=== PATIENT | male | born 1945 | race Caucasian/White ===

== ENCOUNTER 2021-09-27 02:58 | Inpatient (IN) | payer MEDICARE, BC ==
[~2021-09-27] VITALS: Ht 172.7 cm; Wt 84.7 kg
[2021-09-27] VITALS (7 sets, daily range): BP systolic 000–158; BP diastolic 00–67; PULSE 82–91; TEMP 97.8–98.6
[2021-09-27 03:29] LABS: BASO # 0.1 K/mm3 (0.0-0.2); BASO % 0.5 % (0.0-2.0); EOS # 0.2 K/mm3 (0.0-0.7); EOS % 1.9 % (0.0-4.0); GRAN # 5.2 K/mm3 (1.4-6.5); GRAN % 53.3 % (42.2-75.2); HEMATOCRIT 43.6 % (42.0-52.0); HEMOGLOBIN 14.2 g/dl (13.5-18.0); LYMPH # 3.1 K/mm3 (1.2-3.4); LYMPH % 31.9 % (20.0-51.0); MEAN CELL VOLUME 90 fl (80.0-100.0); MEAN CORPUSCULAR HEMOGLOBIN 29 pg (27-31); MEAN CORPUSCULAR HGB CONC 33 g/dl (33.0-37.0); MONO % 10.5 % (1.7-9.3); PLATELET COUNT 258 K/mm3 (130-400); RED BLOOD COUNT 4.83 M/mm3 (4.20-5.60); REDCELL DISTRIBUTION WIDTH-CV 13.8 % (11.5-14.5)
[2021-09-27 03:49] LABS: ALBUMIN 3.4 gm/dL (3.4-4.8); BILIRUBIN,TOTAL 0.3 mg/dL (0.2-1.2); CALCIUM 9.4 mg/dL (8.4-10.2); CREATININE, serum 1.42 mg/dL (0.72-1.25); POTASSIUM 4.7 mmol/L (3.5-4.5); TOTAL PROTEIN 6.8 gm/dL (6.2-8.1)
[2021-09-27] MEDS ORDERED: LIALDA 1.2 GM1.2 GM (05:04)
[2021-09-27 05:05] LABS: PROTHROMBIN TIME 11.8 SECONDS (9.7-12.8)
[2021-09-27] MEDS ORDERED: KAPSPARGO SPRIN25 MG PO (05:05)
[2021-09-27] MEDS ORDERED: RAPAFLO4 MG PO (05:05)
[2021-09-27] MEDS ORDERED: ASPIRIN 81M81 MG/TA2 PO (05:06)
[2021-09-27] MEDS ORDERED: NASACORT OTC NS (05:06)
[2021-09-27] MEDS ORDERED: ARTIFICIAL TEAR15 M7 OP (05:06)
[2021-09-27] MEDS ORDERED: PROSCAR 5MG5 MG PO (05:06)
[2021-09-27] MEDS ORDERED: VITAMIN C500 MG PO (05:07)
[2021-09-27] MEDS ORDERED: PROAIR HFA0.09 MG/AC IH (05:07)
[2021-09-27] MEDS ORDERED: COMPLETE MULTI1 TAB PO (05:07)
[2021-09-27] MEDS ORDERED: MASON NATURAL2000 IU PO (05:08)
[2021-09-27] MEDS ORDERED: CLARITIN 1010 MG/TAB PO (05:08)
--- NOTE | 2021-09-27 06:16 | NUR ---
patient up to room 323 at 0610. alert and oriented. ambulated to bed with standby assist. vitals taken by tube winder. iv zosyn hung and infusing. denies pain.
[2021-09-27] MEDS ORDERED: ATACAND32 MG PO (07:40)
--- NOTE | 2021-09-27 09:30 | NUR ---
PT RESTING IN BED. DR. JOSEPH HAS BEEN HERE TO SEE PT. IVF ET SANDOSTATIN INFUSING CONCURRENTLY INTO LEFT UPPER ARM IV. PT'S DIET CHANGED TO CLEAR LIQUIDS, STATES THAT HE WOULD JUST LIKE SOME WATER. PT HAS BEEN TO THE BR X1 TO VOID ET HAD A LARGE LIQUID STOOL. STOOL IS DARK RED WITH SEVERAL CLOTS SEEN.
[2021-09-27 09:38] LABS: HEMATOCRIT 35.4 % (42.0-52.0); HEMOGLOBIN 11.5 g/dl (13.5-18.0)
--- NOTE | 2021-09-27 11:12 | NUR ---
PT HAS BEEN ASSISTED TO BR ET BACK TO BED, HAS HAD 200 ML LIQUID DARK RED STOOL WITH NUMEROUS CLOTS. SPINDLE CARVER NOTIFIED THIS NURSE THAT PT'S HR INCREASED TO 140s FOR A SHORT WHILE WHEN HE WAS IN BR, HAS SINCE RETURNED TO 60-70s. PT IS PALE ET STATES THAT HE DID FEEL A BIT WOOZY RETURNING FROM THE BR THIS TIME. PT EDUCATED ON FALL PRECAUTIONS, DEMONSTRATES UNDERSTANDING. FAMILY IS @ BEDSIDE. CALL LIGHT WITHIN REACH.
--- NOTE | 2021-09-27 12:32 | NUR ---
line out worker met with patient to complete intake and discuss discharge plan. Patient lives at home with his saad ([phone]) in [place]. Patient's son Willam ([phone]) is present at bedside. Patient is independent with his ADL's and does not utilize any DME to assist with mobility. Patient has no home oxygen needs. PCP is Dr. Hameed and he follows for GI. He utilizes [facility] pharmacy in [place] for prescriptions with no cost difficulty. Patient reports that he does have a DPOA-HC established but one is no found in his EMR. Patient is planning on returning home once medically ready. SW collaborated with patient's RN for PT/OT orders. Discharge plan: Home
--- NOTE | 2021-09-27 13:12 | NUR ---
Initial visit; Patient and his Carol thanked Line Erector Apprentice for looking in on Esequiel and offering encouragement, comfort, understanding and prayer. Patient demonstrates some fear and is waiting and hopefully his issues may take care of themselves, although he and his Physician are counting on prayer and hopefully they won't have to take other measures to stop it. Line Erector Apprentice will keep him in her prayers and will look in on Esequiel tomorrow or earlier if the need arises.
[2021-09-27 15:06] LABS: HEMATOCRIT 31.5 % (42.0-52.0)
--- NOTE | 2021-09-27 19:06 | NUR ---
REPORT HAS BEEN GIVEN TO NIGHT FRED AGUIAR. PT HAS HAD NUMEROUS LIQUID CLOTTY DARK RED STOOLS TODAY. PT HAS ALSO VOIDED, DENIES ANY PAIN OR NAUSEA. PT HAS TOLERATED CLEAR LIQUID DIET WELL. IVF INFUSING INTO RIGHT FOREARM IV. PERIPHERAL IV IN PT'S LEFT UPPER ARM WAS DCED R/T LEAKING ET PAIN @ SITE. SPOUSE HAS BEEN @ BEDSIDE. PT USES SBA WITH AMBULATION TO THE BR, STATES THAT HE DOES FEEL DIZZY WHEN DOING SO. RESPIRATIONS UNLABORED ON ROOM AIR. CALL LIGHT WITHIN REACH.
[2021-09-27 20:44] LABS: HEMATOCRIT 28.8 % (42.0-52.0); HEMOGLOBIN 9.1 g/dl (13.5-18.0)
[2021-09-28 03:28] VITALS: BP 134/55; PULSE 87; TEMP 97.9
[2021-09-28 05:54] LABS: BASO % 0.4 % (0.0-2.0); EOS # 0.2 K/mm3 (0.0-0.7); EOS % 1.9 % (0.0-4.0); GRAN # 4.8 K/mm3 (1.4-6.5); GRAN % 60.8 % (42.2-75.2); LYMPH # 1.8 K/mm3 (1.2-3.4); MEAN CELL VOLUME 91 fl (80.0-100.0); MEAN CORPUSCULAR HGB CONC 32 g/dl (33.0-37.0); MEAN PLATELET VOLUME 11.2 fl (7.4-10.4); MONO % 12.5 % (1.7-9.3); PLATELET COUNT 179 K/mm3 (130-400); RED BLOOD COUNT 2.88 M/mm3 (4.20-5.60); REDCELL DISTRIBUTION WIDTH-CV 14.2 % (11.5-14.5)
[2021-09-28 05:57] LABS: HEMATOCRIT 26.2 % (42.0-52.0); HEMOGLOBIN 8.4 g/dl (13.5-18.0); MEAN CORPUSCULAR HEMOGLOBIN 29 pg (27-31)
[2021-09-28 06:10] LABS: CALCIUM 8.1 mg/dL (8.4-10.2); CREATININE, serum 1.23 mg/dL (0.72-1.25); MAGNESIUM 1.8 mg/dL (1.6-2.6); POTASSIUM 4.6 mmol/L (3.5-4.5)
--- NOTE | 2021-09-28 06:25 | NUR ---
no bloody stools this shift, voiding clear, yellow urine. IVF infusing per PIV @75cc/hr, octreotide infusing @50cc/hr. tolerating clear liquids w/o N/V. no dizziness tonight when up out of bed.
[2021-09-28 07:30] VITALS: BP 134/59; PULSE 81; TEMP 98
[2021-09-28 12:12] VITALS: BP 131/61; PULSE 82; TEMP 97.8
[2021-09-28 16:02] VITALS: BP 133/64; PULSE 78; TEMP 98.5
[2021-09-28 19:25] VITALS: BP 135/54; PULSE 73; TEMP 98.5
[2021-09-28 19:31] LABS: HEMATOCRIT 24.9 % (42.0-52.0); HEMOGLOBIN 7.8 g/dl (13.5-18.0)
--- NOTE | 2021-09-28 22:35 | NUR ---
Patient denies pain and discomfort. HMG back at 7.8. Updated patient and family. Denies having any bowel movements today. Aware that staff wants to visualize stool if he does have another bowel movement. Voices no questions, needs, or concerns at this time. Continues on IV fluids per orders. In bed with call light within reach.
[2021-09-28 23:39] VITALS: BP 144/56; PULSE 87; TEMP 99.2
[2021-09-29] MEDS ORDERED: FERRO-TIME325 MG PO (00:59)
[2021-09-29] MEDS ORDERED: MIRALAX PA17 GM/Dose PO (01:01)
[2021-09-29 04:16] VITALS: BP 140/56; PULSE 92; TEMP 97.8
--- NOTE | 2021-09-29 05:15 | NUR ---
Patient has denied pain and discomfort this shift. Continues on IV fluids per orders. No bowel movements this shift. Voices no questions, needs, or concerns at this time. In bed with call light within reach.
[2021-09-29 07:25] VITALS: BP 138/66; PULSE 78; TEMP 97.8
[2021-09-29 07:31] VITALS: BP 120/58; PULSE 51; TEMP 97.6
[2021-09-29 10:49] LABS: HEMATOCRIT 26.8 % (42.0-52.0); HEMOGLOBIN 8.6 g/dl (13.5-18.0)
[2021-09-29 11:01] LABS: CALCIUM 8.5 mg/dL (8.4-10.2); CREATININE, serum 1.3 mg/dL (0.72-1.25); POTASSIUM 3.8 mmol/L (3.5-4.5)
[2021-09-29 12:13] VITALS: BP 153/66; PULSE 96; TEMP 98.5
[2021-09-29] MEDS ORDERED: PROTONIX 40MG T40 MG PO (14:27)
--- NOTE | 2021-09-29 16:20 | NUR ---
PATIENT AND GIVEN DISCHARGE INSTRUCTIONS/ EDUCATION. BOTH IV'S REMOVED. PATIENT LEFT IN STABLE CONDTION. RN WALKED PATIENT OT MIGUEL. PATIENT LEFT AT 3:45 PM
== END 2021-09-29 15:35 | disposition home health service (06) | DRG 378 ==
LOC: COL.ER 02:58 → SURG 05:16
PROVIDERS: Emergency Medicine; Internal Medicine; Nurse Practitioner Family; Student in an Organized Health Care Education/Training Program; ADMIT Student in an Organized Health Care Education/Training Program
DX: K57.31 Diverticulosis of large intestine without perforation or abscess with bleeding (principal); K50.90 Crohn's disease, unspecified, without complications; N17.9 Acute kidney failure, unspecified; N40.0 Benign prostatic hyperplasia without lower urinary tract symptoms; M19.90 Unspecified osteoarthritis, unspecified site; J45.909 Unspecified asthma, uncomplicated; E87.5 Hyperkalemia; I12.9 Hypertensive chronic kidney disease with stage 1 through stage 4 chronic kidney disease, or unspecified chronic kidney disease; N18.9 Chronic kidney disease, unspecified; E78.5 Hyperlipidemia, unspecified; Z85.828 Personal history of other malignant neoplasm of skin; Z85.46 Personal history of malignant neoplasm of prostate; Z79.82 Long term (current) use of aspirin; Z87.442 Personal history of urinary calculi; Z90.89 Acquired absence of other organs; Z87.19 Personal history of other diseases of the digestive system
CPT/HCPCS: 99232-AI; J0744; J2354; J2543; J7030; J7040; J7120; Q9967